=== PATIENT | male | born 1955 | race Caucasian/White ===

== ENCOUNTER 2022-07-07 14:29 | Emergency (ER) | payer MEDICARE, BC, SELFPAY ==
[2022-07-07] VITALS (22 sets, daily range): BP systolic 136–145; BP diastolic 67–127; PULSE 52–77; RESP 20; TEMP 36.2; O2SAT 95–97; BMI 24.4
--- NOTE | 2022-07-07 15:13 | CRLHL7_ITS ---
For Patients: As a result of the Century Cures Act, medical imaging exams and procedure reports are released immediately into your electronic medical record. You may view this report before your referring provider. If you have questions, please contact your health care provider. INDICATION: ABD DISTENSION, DYSPEPSIA TECHNIQUE: CT abdomen and pelvis acquired with 85 cc Isovue 370 at IV contrast. COMPARISON: None. FINDINGS: Lower chest: A few scattered sub-6 millimeter indeterminate pulmonary nodules in the lung bases predominantly in the subpleural space or abutting the fissures, likely intrapulmonary lymphoid tissue. Coronary artery calcifications. ABDOMEN: Liver: Normal enhancement. No focal suspicious hepatic lesions. Gallbladder and biliary: Normal gallbladder without radiopaque stone. Normal caliber bile ducts. Spleen: Splenectomy. Residual splenule. Pancreas: Normal enhancement without peripancreatic inflammatory changes or ductal dilatation. Adrenal glands: Normal adrenal glands. Kidneys and ureters: Normal enhancement. No radio-opaque calculi. No hydroureteronephrosis. GI tract: Although relatively decompressed there is questionable hyperemia and thickening of the gastric wall. Normal caliber small and large bowel loops. Appendix is not definitively visualized. Colonic diverticulosis without diverticulitis. Vascular structures: Patent abdominal aorta with atherosclerotic vascular calcifications. 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 Lymph nodes: Prominent nonenlarged periportal and lesser sac lymph nodes. Peritoneum: No free air, free fluid, or focal drainable fluid collection. Small bilateral direct left and indirect right fat containing inguinal hernias. PELVIS: Genitourinary system: Normal urinary bladder. Prostatomegaly. SKELETAL STRUCTURES AND SOFT TISSUES: SI joint arthrosis. Multilevel lumbar spondylosis. Old left-sided rib fractures. IMPRESSION: 1. No definite acute abdominal or pelvic process. No obstruction. No hydroureteronephrosis. 2. Although relatively decompressed there is questionable hyperemia and thickening of the gastric wall. This is a nonspecific finding however can be seen in the setting of underlying gastritis. Please note that all CT scans at this facility use dose modulation, iterative reconstruction, and/or weight-based dosing when appropriate to reduce radiation dose to as low as reasonably achievable. Dictated by Chad Amado MD @ 07/07/2022 4:43:16 PM (Electronically Signed)
--- NOTE | 2022-07-07 15:14 | ED_ITS ---
HPI - General Adult General Chief complaint: Abdominal Pain Stated complaint: Pressure in abdomen Time Seen by Provider: 07/07/22 14:34 History of Present Illness HPI narrative: This 67-year-old male comes in reporting feeling of abdominal distension with increased pressure and some associated discomfort. These symptoms began about 5 days ago. He did induce vomiting 4 days ago thinking this may help his symptoms. He does have some loose stools that are yellow colored. He states t hat he has otherwise been in good health prior to this. He does not report any fevers. Related Data Home Medications Medication Instructions Recorded Confirmed atorvastatin 40 mg tablet 40 mg PO QDAY 01/24/22 07/07/22 lisinopril 5 mg tablet 5 mg PO QDAY 01/24/22 07/07/22 omeprazole 20 mg capsule,delayed 20 mg PO BID 01/24/22 07/07/22 release Previous Rx's Medication Instructions Recorded metronidazole 500 mg tablet 500 mg PO BID 7 days #14 tabs 07/07/22 Allergies Allergy/AdvReac Type Severity Reaction Status Date / Time No Known Drug Allergies Allergy Verified 07/07/22 15:35 Review of Systems Status of ROS: Reports: 10 or more systems reviewed and unremarkable except as noted in History and below Narrative: Constitutional: No fevers, no weight gain or loss. Eyes: No discharge. No vision changes. HENT: No congestion, no sore throat, no ear pain. Cardiovascular: No chest pain, no palpitations. Respiratory: No shortness of breath, no wheezes, no cough. Gastrointestinal: Abdominal distension. Increased pressure in the abdomen. Yellow colored stools. Genitourinary: No dysuria, no hematuria. Musculoskeletal: Normal range of motion. Skin: No rashes, no pruritis. Neurological: No dizziness, weakness, sensory change, speech change. Endo/Heme/Allergies: No bruising or bleeding. No polydipsia. Pysch: no suicidality, no anxiety, no insomnia. All other systems reviewed and are negative. [facility] Social History Smoking Status: Never smoker Do you use any of these nicotine containing products: None Second hand tobacco smoke exposure: No How often do you have a drink containing alcohol: 2-4 times a month How many standard drinks containing alcohol do you have on a typical day: 3 or 4 How often do you have six or more drinks on one occasion: Less than monthly AUDIT-C Alcohol total score: 4 Non-prescribed substance use: denies use service: No Exam Narrative: Exam Narrative: Constitutional: Well-developed, well-nourished, no acute distress. HEENT: Normocephalic, atraumatic. Neck: Normal range of motion. Nontender. Supple. Heart: Regular. No murmurs. Normal rate. Intact distal pulses. Lungs: Clear to auscultation. No chest discomfort. No wheezes, rhonchi, or rales. Abdomen: Increased bowel sounds. No high-pitched bowel sounds. Diffuse mild tenderness. No rebound tenderness. Genitalia: Deferred. Back: No midline tenderness. Normal range of motion. Extremities: Normal range of motion. No injury. Skin: Intact. No rash. Warm. No erythema or pallor. Neurologic: No altered sensation. No weakness. Alert and oriented. Psychiatric: No suicidality. No anxiety or depression. No insomnia. Nursing notes and vitals signs are reviewed. Const: Vital Signs, click to edit/add: Vital Signs - 24 hr 07/07/22 14:37 07/07/22 15:30 07/07/22 15:32 Temperature 97.1 F L Pulse Rate 61 77 Pulse Rate [Pulse Oximeter] 72 Respiratory Rate 20 Blood Pressure 143/127 H Blood Pressure [Ri ght Upper Arm] 139/97 H Pulse Oximetry 97 95 95 Oxygen Delivery Me od Room Air 07/07/22 15:35 07/07/22 15:36 07/07/22 15:52 Temperature Pulse Rate 58 L 55 L 53 L Pulse Rate [Pulse Oximeter] Respiratory Rate Blood Pressure 144/73 H Blood Pressure [Ri ght Upper Arm] Pulse Oximetry 95 96 96 Oxygen Delivery Me thod 07/07/22 15:54 07/07/22 15:55 07/07/22 16:00 Temperature Pulse Rate 55 L 56 L 55 L Pulse Rate [Pulse Oximeter] Respiratory Rate Blood Pressure 138/67 Blood Pressure [Ri ght Upper Arm] Pulse Oximetry 97 97 96 Oxygen Delivery Pr thod 07/07/22 16:15 07/07/22 16:30 07/07/22 16:32 Temperature Pulse Rate 60 56 L 57 L Pulse Rate [Pulse Oximeter] Respiratory Rate Blood Pressure 137/78 Blood Pressure [Ri ght Upper Arm] Pulse Oximetry 97 96 96 Oxygen Delivery Me thod Course Vital Signs Vital signs: Initial Vital Signs Temperature 97.1 F L 07/07/22 14:37 Temperature Source Temporal Artery Scan 07/07/22 14:37 Pulse Rate 72 07/07/22 14:37 Pulse Rhythm Regular 07/07/22 14:37 Respiratory Rate 20 07/07/22 14:37 Blood Pressure 139/97 H 07/07/22 14:37 Blood Pressure Mean 111 H 07/07/22 14:37 Blood Pressure Position Supine 07/07/22 14:37 Pulse Oximetry 97 07/07/22 14:37 Oxygen Delivery Method Room Air 07/07/22 14:37 Vital Signs Temperature 97.1 F L 07/07/22 14:37 Pulse Rate 72 07/07/22 14:37 Respiratory Rate 20 07/07/22 14:37 Blood Pressure 139/97 H 07/07/22 14:37 Pulse Oximetry 97 07/07/22 14:37 Oxygen Delivery Method Room Air 07/07/22 14:37 Temperature 97.1 F L 07/07/22 14:37 Pulse Rate 57 L 07/07/22 16:32 Respiratory Rate 20 07/07/22 14:37 Blood Pressure 137/78 07/07/22 16:32 Pulse Oximetry 96 07/07/22 16:32 Oxygen Delivery Method Room Air 07/07/22 14:37 Medical Decision Making MDM Narrative Medical decision making narrative: This patient has had abdominal symptoms of distension and discomfort for the past 5 days. He also has a description of yellow-colored soft stools that are very odorous. He has not had any fevers. An IV was established and labs were drawn. These returned with normal findings. Urinalysis also shows no sign of infection. CT imaging of the abdomen and pelvis also shows no findings to explain his symptoms. There is some subtle changes that may indicate a gastritis. The patient also did provide a sample for stool culture. These results are pending. He is okay to be discharged home. I did prescribe Flagyl in the event that this may help him as he has had these symptoms for the past 5 days. It did occur after taking some food at a restaurant. Lab Data Labs: Lab Results 07/07/22 07/07/22 Range/Units 15:20 17:25 WBC 8.60 (4.50-11.00) K/uL RBC 4.74 (4.30-5.90) m/uL Hgb 14.9 (13.5-17.5) gm/dL Hct 43.1 (37.0-53.0) % MCV 91 (80-100) fL MCH 31 (26-34) pg MCHC 35 (32-36) gm/dL RDW Coeff of Ani 13.0 (11.5-15.5) % Plt Count 319 (140-440) K/uL Neut % (Auto) 59.2 (42.0-72.0) % Lymph % (Auto) 31.0 (20-44) % [place] % (Auto) 8.5 (0.0-11.0) % Eos % (Auto) 0.9 (0.0-7.0) % Baso % (Auto) 0.3 (0.0-3.0) % Neut # (Auto) 5.08 (1.7-7.0) K/uL Lymph # (Auto) 2.67 (0.90-2.90) K/uL [place] # (Auto) 0.70 (0.00-0.90) K/UL Eos # (Auto) 0.08 (0.00-0.50) K/uL Baso # (Auto) 0.03 (0.00-0.30) K/uL Sodium 138 (135-149) mmol/L Potassium 4.1 (3.6-5.1) mmol/L Chloride 107 (96-114) mmol/L Carbon Dioxide 24 (20-32) mmol/L BUN 19 (7-30) mg/dL Creatinine 0.6 (0.5-1.5) mg/dL Estimated Creat Clear 74.25 Estimated GFR 104 ml/min Glucose 98 (60-115) mg/dL Calcium 8.6 (8.4-10.6) mg/dL Total Bilirubin 0.7 (0.1-1.5) mg/dL Direct Bilirubin 0.2 (0.0-0.5) mg/dL AST 31 (12-35) U/L ALT 35 (4-50) U/L Alkaline Phosphatase 62 (40-150) U/L Total Protein 6.9 (6.0-8.3) g/dL Albumin 4.0 (3.3-5.0) g/dL Lipase 34 (23-300) U/L Urine Color Yellow (Yellow) Urine Appearance Clear (Clear) Urine pH 6.0 (5.0-8.5) Ur Specific [place] 1.025 (1.000-1.030) Urine Protein 2+ A (Negative) Urine Glucose (UA) Negative (Negative) Urine Ketones 2+ A (Negative) Urine Blood Trace-intact A (Negative) Urine Nitrite Negative (Negative) Urine Bilirubin Negative (Negative) Urine Urobilinogen 0.2 (0.2-1.0) Ur Leukocyte Esterase Trace A (Negative) Urine RBC 0-2 (0-2) Urine WBC 0-2 (0-5) Ur Squamous Epith Cells Few (None-Few) Urine Bacteria None (None) Imaging Data CT scan - abdomen: Radiologist's impression: 1. No definite acute abdominal or pelvic process. No obstruction. No hydroureteronephrosis. 2. Although relatively decompressed there is questionable hyperemia and thickening of the gastric wall. This is a nonspecific finding however can be seen in the setting of underlying gastritis. Discharge Plan Discharge Clinical Impression: Gastritis Patient Disposition: Home, Self-Care Condition: Stable Additional Instructions: Take medication as prescribed. Follow up with MD or return if worsening. Prescriptions: New metronidazole 500 mg tablet 500 mg PO BID 7 Days Qty: 14 0RF No Action atorvastatin 40 mg tablet 40 mg PO QDAY lisinopril 5 mg tablet 5 mg PO QDAY omeprazole 20 mg capsule,delayed release(DR/EC) 20 mg PO BID Follow Up/Referrals: Provider,Not a Local [Primary Care Provider] - Stand Alone Forms: [employer] Info Instructions
[2022-07-07 15:30] LABS: Basophils Absolute Auto 0.03 K/uL (0.00-0.30); Basophils Percent Auto 0.3 % (0.0-3.0); Eosinophils Absolute Auto 0.08 K/uL (0.00-0.50); Eosinophils Percent Auto 0.9 % (0.0-7.0); Hematocrit 43.1 % (37.0-53.0); Hemoglobin* 14.9 gm/dL (13.5-17.5); Immature Granulocytes Abs Auto 0.01 K/uL (0.00-0.30); Immature Granulocytes Pct Auto 0.1 %; Lymphocytes Absolute Auto 2.67 K/uL (0.90-2.90); Mean Corpuscular HGB Conc 35 gm/dL (32-36); Mean Corpuscular Hemoglobin 31 pg (26-34); Mean Corpuscular Volume 91 fL (80-100); Monocytes Percent Auto 8.5 % (0.0-11.0); Neutrophils Absolute Auto 5.08 K/uL (1.7-7.0); Neutrophils Percent Auto 59.2 % (42.0-72.0); Platelet Count* 319 K/uL (140-440); Red Blood Count 4.74 m/uL (4.30-5.90)
[2022-07-07 15:36] LABS: Slide Review Reflex No
[2022-07-07 15:47] LABS: Chloride* 107 mmol/L (96-114); Potassium* 4.1 mmol/L (3.6-5.1); Sodium* 138 mmol/L (135-149)
[2022-07-07 15:49] LABS: Creatinine* 0.6 mg/dL (0.5-1.5); Est. Creatinine Clearance* 74.25; Estimated Glomerular Filt Rate 104 ml/min
[2022-07-07 15:50] LABS: Alanine Aminotransferase* 35 U/L (4-50); Alkaline Phosphatase* 62 U/L (40-150); Aspartate Amino Transferase* 31 U/L (12-35); Bilirubin Direct* 0.2 mg/dL (0.0-0.5); Bilirubin Total* 0.7 mg/dL (0.1-1.5); Blood Urea Nitrogen* 19 mg/dL (7-30); Calcium* 8.6 mg/dL (8.4-10.6); Carbon Dioxide* 24 mmol/L (20-32); Glucose* 98 mg/dL (60-115); Lipase* 34 U/L (23-300); Total Protein* 6.9 g/dL (6.0-8.3)
[2022-07-07 17:43] LABS: Appearance Urine Clear (Clear); Bilirubin Urine Negative (Negative); Blood Urine Trace-intact (Negative); Color Urine Yellow (Yellow); Glucose Urine Negative (Negative); Ketones Urine 2+ (Negative); Leukocyte Esterase Urine Trace (Negative); Nitrite Urine Negative (Negative); Protein Urine 2+ (Negative); Specific Gravity Urine 1.025 (1.000-1.030); Urobilinogen Urine 0.2 (0.2-1.0)
[2022-07-07 18:00] LABS: RBC Urine 0-2 (0-2); Squamous Epithelial Cell Urine Few (None-Few); WBC Urine 0-2 (0-5)
== END 2022-07-07 18:20 | disposition home or self-care (01) ==
PROVIDERS: Emergency Provider Emergency Medicine Emergency Medical Services; PCP Student in an Organized Health Care Education/Training Program
DX: K29.70 Gastritis, unspecified, without bleeding (principal)
CPT/HCPCS: 36415; 74177; 80048; 80076; 81001; 83690; 85025; 87045; 87046; 87077; 87427; 99284; 99285; Q9967

== ENCOUNTER 2023-03-08 13:45 | Outpatient (RCR) | payer MEDICARE, BC, SELFPAY | END 2023-03-08 16:44 | disposition home or self-care (01) | PROVIDERS: PCP Student in an Organized Health Care Education/Training Program; Visit Provider Student in an Organized Health Care Education/Training Program | DX: S46.012A Strain of muscle(s) and tendon(s) of the rotator cuff of left shoulder, initial encounter (principal); M25.512 Pain in left shoulder; M62.81 Muscle weakness (generalized); M25.612 Stiffness of left shoulder, not elsewhere classified; Z51.89 Encounter for other specified aftercare | CPT/HCPCS: 97110; 97162 ==

== ENCOUNTER 2024-11-15 12:00 | Outpatient (RCR) | payer MEDICARE, BC, SELFPAY | END 2024-11-15 13:16 | disposition home or self-care (01) | PROVIDERS: PCP Student in an Organized Health Care Education/Training Program; Visit Provider Family Medicine | DX: M25.552 Pain in left hip (principal); M62.9 Disorder of muscle, unspecified; Z51.89 Encounter for other specified aftercare | CPT/HCPCS: 97110; 97140; 97161 ==

== ENCOUNTER 2024-12-18 12:28 | Outpatient (CLI) | payer MEDICARE, BC, SELFPAY | END 2024-12-18 12:29 | disposition home or self-care (01) | LOC: INJ CL 12:29 | PROVIDERS: PCP Student in an Organized Health Care Education/Training Program; Visit Provider Family Medicine | DX: M54.16 Radiculopathy, lumbar region (principal); M51.360 Other intervertebral disc degeneration, lumbar region with discogenic back pain only; M47.816 Spondylosis without myelopathy or radiculopathy, lumbar region | CPT/HCPCS: 64483; 64484; 64493; J0702; J1100; Q9966 ==